=== PATIENT | female | born 1990 | race African-American/Black ===

== ENCOUNTER 2019-05-23 17:42 | Emergency (ER) | payer MEDICAID ==
[~2019-05-23] VITALS: Ht 172.7 cm; Wt 52.0 kg
[2019-05-23 17:53] VITALS: BP 110/75
== END 2019-05-23 21:40 | disposition left against medical advice (07) ==
LOC: ER 17:42
DX: J02.9 Acute pharyngitis, unspecified (principal); R05 Cough; Z53.21 Procedure and treatment not carried out due to patient leaving prior to being seen by health care provider